=== PATIENT | female | born 1995 | race Hispanic/Latino ===

== ENCOUNTER 2019-07-15 20:04 | Emergency (ER) | payer SELFPAY ==
[2019-07-15 20:51] LABS: #Lymphocytes 1.1 thou/uL (1.20-3.40); #Monocytes 0.8 thou/uL (0.11-0.59); #Neutrophils 16.5 thou/uL (1.40-6.50); %Basophils 0.1 % (0.0-1.0); %Eosinophils 0.2 % (0.0-10.0); %Lymphocytes 5.8 % (21.0-51.0); %Monocytes 4.5 % (0.0-10.0); %Neutrophils 89.5 % (42.0-75.0); Mean Corpuscular HGB CONC 33.3 g/dL (32.0-36.0); Mean Corpuscular Volume 80.9 fL (78.0-98.0); Platelet Count 253 thou/uL (130-400); RBC Distribution Width 13.1 % (11.5-14.5); Red Blood Cell (RBC) Count 5.58 mill/uL (4.20-5.40); White Blood Cell (WBC) Count 18.5 thou/uL (4.8-10.8)
[2019-07-15] MEDS ORDERED: Ondansetron ODT 4 MG TAB ONE (20:52)
[2019-07-15 20:54] LABS: BHCG - Serum Negative (NEGATIVE); Pregs Control Background? CLEAR/WHITE (CLR/WHITE); Pregs Control Bar Appear? YES (CONTROL BAR)
[2019-07-15 21:13] LABS: ALT (SGPT) 16 U/L (8-55); AST (SGOT) 13 U/L (5-34); Albumin 4.5 g/dL (3.5-5.0); Alkaline Phosphatase 119 U/L (40-150); Anion Gap 12 mmol/L (10-20); BUN (Urea Nitrogen) 12 mg/dL (7.0-18.7); Bilirubin, Total 0.4 mg/dL (0.2-1.2); Calc. Creatinine Clearance 0 mL/min (70-130); Calcium 9.9 mg/dL (7.8-10.44); Carbon Dioxide 23 mmol/L (22-29); Chloride 106 mmol/L (98-107); Estimated GFR-MDRD Greater than 90; Globulin 3.7 g/dL (2.4-3.5); Glucose 119 mg/dL (70-105); Lipase 41 U/L (8-78); Potassium 3.9 mmol/L (3.5-5.1); Protein, Total 8.2 g/dL (6.0-8.3); Sodium 137 mmol/L (136-145)
[2019-07-15 22:02] LABS: Bilirubin Negative (Negative); Blood, Urine Moderate (Negative); Glucose, Urine (Dipstick) Negative (Negative); Leukocyte Negative (Negative); Nitrite Negative (Negative); Protein, Urine (Dipstick) Trace mg/dL (Neg-Trace); Urobilinogen 0.2 mg/dL (Less than 2)
[2019-07-15 22:10] LABS: Clarity Turbid (Clear)
[2019-07-15 22:12] LABS: Bacteria/HPF Rare-Few HPF (None Seen); WBC/HPF 0-3 HPF (0-3)
[2019-07-15] MEDS ORDERED: Ondansetron PF 4 MG/2 ML Vial ONE (22:39)
[2019-07-15] MEDS ORDERED: Morphine 4 MG/ML VIAL ONE (22:39)
--- NOTE | 2019-07-15 23:56 | ULT ---
RIGHT UPPER QUADRANT ULTRASOUND: 07/15/19 HISTORY: Abdominal pain, elevated WBCs. FINDINGS: The liver, gallbladder, and right kidney appear normal. The pancreas is not satisfactorily visualize d due to overlying bowel gas. The common duct measures 4 mm in diameter. No free fluid is seen. IMPRESSION: Nonvisualization of the pancreas, otherwise unremarkable exam. POS: [facility]
--- NOTE | 2019-07-16 09:18 | CT ---
PRELIMINARY REPORT/[facility]/EMERGENCY AFTER HOURS PROCEDURE: EXAM: CT Abdomen and Pelvis Without Contrast EXAM DATE/TIME: 07/16/2019 12:23 AM CLINICAL HISTORY: 23 years old, female; Patient HX: F23 reports to ED C/O ruq abdominal pain. PT reports associated n/v . Surgeries include appendectomy. Nkda lnmp January 2018 (implant in left arm). TECHNIQUE: Imaging protocol: Computed tomography of the abdomen and pelvis without contrast. COMPARISON: No relevant prior studies available. FINDINGS: Liver: Normal. No mass. Gallbladder and bile ducts: Normal. No calcified stones. No ductal dilation. Pancreas: Normal. No ductal dilation. Spleen: Normal. No splenomegaly. Adrenals: Normal. No mass. Kidneys and ureters: Normal. No hydronephrosis. Stomach and bowel: No bowel wall thickening or intestinal obstruction. Appendix: Appendix not visualized. No evidence of appendicitis. Intraperitoneal space: Normal. No free air. No significant fluid collection. Vasculature: Unremarkable. No abdominal aortic aneurysm. Lymph nodes: Mildly prominent right lower quadrant mesenteric lymph nodes measuring up to 9 mm in siz e are nonspecific but may signify mesenteric adenitis. Bladder: Unremarkable as visualized. Reproductive: Unremarkable as visualized. Bones/joints: Unremarkable. No acute fracture. Soft tissues: Unremarkable. IMPRESSION: Mildly prominent right lower quadrant mesenteric lymph nodes measuring up to 9 mm in size are nonspec ific but may signify mesenteric adenitis. Thank you for allowing us to participate in the care of your patient. Dictated and Authenticated by: Kermit Eubanks MD 07/16/2019 12:38 AM Central Time ([place] & [place]) FINAL REPORT EMERGENCY AFTER HOURS ABDOMEN AND PELVIC CT SCAN WITHOUT IV CONTRAST: Date: 07/16/19 Time: 0024 hours FINDINGS/IMPRESSION: Prominent right lower quadrant mesenteric lymph nodes up to 0.9 cm short axis, nonspecific, but can b e seen in mesenteric adenitis. No evidence for acute appendicitis. No renal calculus or obstructio n. Report in agreement with preliminary report given on-call by Mukesh. POS: [facility]
== END 2019-07-16 01:14 | disposition home or self-care (01) ==
LOC: ERS 20:04
DX: I88.0 Nonspecific mesenteric lymphadenitis (principal)
CPT/HCPCS: 36415; 74176; 76705; 80053; 81003; 81015; 83690; 84703; 85025; 96361; 96374; 96375; J2270; J2405; Q0162